=== PATIENT | female | born 1995 | race Caucasian/White ===

== ENCOUNTER 2016-09-05 15:41 | Emergency (ER) | payer SELFPAY ==
[2016-09-05] MEDS ORDERED: DEXAMETHASONE SOD PHOS 10 MG/1 ML VIAL ONE (16:08)
== END 2016-09-05 16:18 | disposition home or self-care (01) ==
LOC: ED 15:41
DX: J02.9 Acute pharyngitis, unspecified (principal)
CPT/HCPCS: 87880; 99283 ×2; J1100